=== PATIENT | male | born 1960 | race African-American/Black ===

== ENCOUNTER 2016-07-21 06:21 | Inpatient (IN) | payer OTHER ==
--- NOTE | ~2016-07-21 | DS ---
Unit #: [id number] #: [id number] Patient: RICARDO MAHONEY [id number] [facility] [place] [place] [address] [id number] MR#: [id number] NAME: RICARDO MAHONEY ROOM: [facility] Age: 55 Sex: M Admission Date: 07/21/2016 : 1960 Discharge Date: Attending Physician: Romaine Bajwa M.D. DISCHARGE SUMMARY IDENTIFYING DATA Mr. Mahoney is a 55-year-old male, who is a resident of [place], [place], and was transferred to us from [facility]. DISCHARGE DIAGNOSES Psychiatric: Chronic paranoid schizophrenia; cocaine abuse, moderate. Medical: Diabetes mellitus, hepatitis C. Stressors: Moderate psychosocial stressors. HISTORY OF PRESENT ILLNESS Please see initial psychiatric evaluation for details. PAST PSYCHIATRIC HISTORY Please see initial psychiatric evaluation for details. PAST MEDICAL HISTORY Please see initial psychiatric evaluation for details. HOSPITAL COURSE The patient was admitted to the adult psychiatric unit at [facility] and was oriented to the hospital environment. Routine p.r.n. medications were initiated, and he was started back on his home medications including his Zoloft and Geodon and was closely monitored. He was anxious, withdrawn, and rather seclusive to himself, though he was taking the medications regularly and was tolerating them fairly well and was able to show a decent and therapeutic response with improvement in depression and psychosis and no agitation or aggression was noticed. He was not seen to be danger to self or anyone else, and therefore, it was decided that he will be discharged home and will continue treatment on an outpatient basis. DISCHARGE MEDICATIONS Zoloft 100 mg a day for depression, Geodon 60 mg b.i.d. for psychosis. DISCHARGE CONDITION Stable. PROGNOSIS Fair. Dictated by... Unit #: [id number] #: [id number] Patient: RICARDO MAHONEY Louise Gore/kalyani TD: 07/25/2016 07:13 JOB #: [id number] DISCHARGE SUMMARY Page 1 of 1 X Romaine Bajwa MD X DISCHARGE SUMMARY
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
--- NOTE | ~2016-07-21 | DS ---
Unit #: [id number] #: [id number] Patient: RICARDO MAHONEY [id number] [facility] [place] [address] [id number] I MR#: [id number] NAME: RICARDO MAHONEY ROOM: [facility] Age: 55 Sex: M Admission Date: 07/21/2016 : 1960 Discharge Date: 07/25/2016 Attending Physician: Romaine Bajwa M.D. Primary Care Physician: Primary Care Physician No DISCHARGE SUMMARY IDENTIFYING DATA Mr. Mahoney is a 55-year-old single male, who was recently discharged from care and was self-referred back to the hospital. DISCHARGE DIAGNOSES Psychiatric: Major depressive disorder, recurrent, moderate, without psychotic features; alcohol dependence, moderate. Medical: Hepatitis C, hypertension, diabetes mellitus. Stressors: Moderate psychosocial stressors. HISTORY OF PRESENT ILLNESS Please see initial psychiatric evaluation for details. PAST PSYCHIATRIC HISTORY Please see initial psychiatric evaluation for details. PAST MEDICAL HISTORY Please see initial psychiatric evaluation for details. HOSPITAL COURSE The patient was admitted to the adult chemical dependency unit at [facility] and was oriented to the hospital environment. Routine p.r.n. medications were initiated, and he was started back on his home medications and was closely monitored. He was taking the medications regularly and was tolerating them fairly well and was able to show a decent and therapeutic response with improvement in depression and anxiety and was willing to continue treatment on an outpatient basis and as such, it was decided that he will be discharged home and will continue treatment on an outpatient basis. DISCHARGE MEDICATIONS Zoloft 100 mg a day for depression, Geodon 60 mg b.i.d. for mood disorder, Glucophage 500 mg b.i.d. for diabetes, Levemir 15 units at bedtime for diabetes. DISCHARGE CONDITION Stable. PROGNOSIS Fair. Unit #: [id number] #: [id number] Patient: RICARDO MAHONEY Dictated by... Romaine Bajwa M.D. IAA/modl TD: 08/01/2016 06:58 JOB #: [id number] DISCHARGE SUMMARY Page 1 of 1 X Romaine Bajwa MD X DISCHARGE SUMMARY
--- NOTE | ~2016-07-21 | HP ---
Unit #: [id number] #: [id number] Patient: NADIR MAHONEY [id number] [place] [address] [id number] I MR#: [id number] NAME: NADIR MAHONEY ROOM: P254 Age: 55 Sex: M Admission Date: 07/21/2016 : 1960 Attending Physician: Romaine Bajwa M.D. Admitting Physician: Romaine Bajwa M.D. Primary Care Physician: No Primary Care Physician HISTORY AND PHYSICAL HISTORY OF PRESENT ILLNESS Nadir is a 55-year-old admitted to [address] [place] [address] with depression and verbalizing wanting to hurt himself. PAST MEDICAL HISTORY 1. History of illicit substance abuse. 2. Diabetes mellitus. 3. Hepatitis C. 4. High blood pressure. PAST SURGICAL HISTORY Nothing reported. ALLERGIES Hydrocodone and Tylenol. SOCIAL HISTORY He does not smoke. Drinks alcohol socially. Admits to a history of illicit drug use to include crack cocaine and amphetamines. FAMILY HISTORY Medically noncontributory. REVIEW OF SYSTEMS CONSTITUTIONAL: No fever or chills. HEENT: Denies any sore throat, ear pain or runny nose. CARDIOVASCULAR: Denies chest pain, irregular heart rhythm or palpitations. CHEST: Denies shortness of breath or cough. No hemoptysis. GASTROINTESTINAL: Denies nausea, vomiting, diarrhea or chronic constipation. ENDOCRINE: Denies history of increased thirst or urination. No recent significant weight loss or gain. GENITOURINARY: Denies dysuria, frequency, or hematuria. SKIN: Denies any rashes. HEMATOLOGIC: Denies history of increased bleeding or bruising. MUSCULOSKELETAL: Denies any hot, swollen joints. No generalized muscle pain. NEUROLOGIC: Denies problems with vision or speech. No frequent, severe headaches. No numbness, tingling or weakness in any extremities. Denies loss of bladder or bowel control. CURRENT MEDICATIONS 1. Zoloft 100 mg every day. Unit #: [id number] #: [id number] Patient: NADIR MAHONEY 2. Zestril 5 mg every day. 3. Glucotrol 5 mg q.a.m. 4. Geodon 60 mg b.i.d. 5. Glucophage 500 mg b.i.d. 6. NovoLog per sliding scale. 7. Motrin 400 mg q.6 hours p.r.n. 8. Milk of magnesia p.r.n. 9. Maalox p.r.n. PHYSICAL EXAMINATION GENERAL: Alert, thin, and in no apparent distress. VITAL SIGNS: Blood pressure 160/88, heart rate 77, respirations 16, temperature 98.6, weight 130 pounds, and height 6 feet, 0 inches. SKIN: Warm and dry without rash or lesion. HEENT: Normocephalic. TMs not viewed. Oral and nasal passages clear. Conjunctivae clear. PERRLA. EOMs intact. NECK: Supple without lymphadenopathy or thyromegaly. HEART: Regular rate and rhythm without murmur. LUNGS: Clear. ABDOMEN: Soft, nontender. : Not done. EXTREMITIES: No evidence of cyanosis, clubbing or edema. Moves all without focal deficit. NEUROLOGICAL: Grossly within normal limits. Cranial Nerves: II: Visual jacobsen are intact. III, IV AND : Extraocular movements are intact. Pupils are equal, round and reactive to light. V: Facial sensation is grossly normal. VII: Facial movements and expression are normal. VIII: Auditory acuity grossly intact. IX, X: Uvula is midline. Phonation is normal. XI: Patient shrugs shoulders and turns head normally. XII: Tongue protrudes in the midline. Sensory and Motor Function: Sensory and motor sensation is grossly normal. Motor: moves all extremities well. Coordination: Gait is normal. Deep Tendon Reflexes: Intact. IMPRESSION Psychiatric admission. RECOMMENDATIONS PSYCHIATRIC: Per psychiatrist. MEDICAL: I see no contraindication to participating in facility's activities. MEDICAL PROGNOSIS Good. MEDICAL CONDITION Stable. Dictated by... Rosalba Ma P.A.-C. for Louise Nuñez Unit #: [id number] #: [id number] Patient: NADIR MAHONEY TD: 07/22/2016 06:28 JOB #: [id number] HISTORY AND PHYSICAL Page 1 of 1 X Rosalba Ma HISTORY AND PHYSICAL
--- NOTE | ~2016-07-21 | PN ---
Unit #: [id number] #: [id number] Patient: RICARDO MAHONEY [id number] [facility] [address] [place] [address] [id number] Angelo MR#: [id number] NAME: RICARDO MAHONEY ROOM: P254 Age: 55 Sex: M Admission Date: 07/21/2016 : 1960 Attending Physician: Romaine Bajwa M.D. Admitting Physician: Romaine Bajwa M.D. Primary Care Physician: Primary Care Physician Marilin DENG PROGRESS NOTES DATE OF SERVICE: 07/24/2016 SUBJECTIVE Mr. Mahoney is a 55-year-old male who was seen today and chart was reviewed, and case was discussed with the staff. He has been very seclusive to himself and stays in his bed and does not open his eyes and talk to me, even though I know that he is and he would not interact and answer any of my questions and the staff says that he stays rather seclusive to himself. MENTAL STATUS EXAMINATION Middle-aged male who was casually dressed with fair personal hygiene, appears to be in no acute distress or discomfort and was awake and alert with impaired attention and concentration. The rest of the mental status examination could not be completed due to the patient refusing to cooperate very much in treatment and as such, we will continue to monitor the patient's intervention and we will make further adjustments as needed. Dictated by... Louise Gore/kalyani TD: 07/25/2016 13:04 JOB #: [id number] AAKASH PROGRESS NOTES Page 1 of 1 X Romaine Bajwa MD X PROGRESS NOTE
--- NOTE | ~2016-07-21 | PN ---
Unit #: [id number] #: [id number] Patient: RICARDO MAHONEY [id number] [facility] [address] [place] [address] [id number] MR#: [id number] NAME: RICARDO MAHONEY ROOM: P254 Age: 55 Sex: M Admission Date: 07/21/2016 : 1960 Attending Physician: Romaine Bajwa M.D. Admitting Physician: Romaine Bajwa M.D. Primary Care Physician: Primary Care Physician Marilin COFFEY NOTES DATE 07/22/2016 DISCUSSION Mr. Mahoney is a 55-year-old, white male with mood disorder who was seen today and chart was reviewed and case was discussed with the staff. He has been anxious, withdrawn and rather seclusive to himself. Meanwhile, he has been cooperative with treatment recommendations. He has been taking medications and tolerating them fairly well with no reported side effects. MENTAL STATUS EXAM Young white male who was casually dressed with fair personal hygiene, appears to be in no acute distress or discomfort. He was awake and alert on interaction with intact orientation. His mood was anxious with congruent affect. He denies any suicidal or homicidal ideation. His insight and judgement remains slightly impaired. TREATMENT PLAN 1. We will continue him on his current medications and treatment protocol. We will monitor his response to the medications and make further adjustments as needed. 2. We will continue to follow up. Dictated by... Louise Gore/ton TD: 07/26/2016 02:15 JOB #: [id number] Unit #: [id number] #: [id number] Patient: RICARDO MAHONEY PROGRESS NOTES Page 1 of 1 X Romaine Bajwa MD X PROGRESS NOTE
--- NOTE | ~2016-07-21 | PN ---
Unit #: [id number] #: [id number] Patient: RICARDO MAHONEY [id number] [facility] [address] [place] [address] [id number] I MR#: [id number] NAME: RICARDO MAHONEY ROOM: P254 Age: 55 Sex: M Admission Date: 07/21/2016 : 1960 Attending Physician: Romaine Bajwa M.D. Admitting Physician: Romaine Bajwa M.D. Primary Care Physician: Marilin Primary Care Physician ISH PROGRESS NOTES DATE OF SERVICE July 23, 2016 DISCUSSION Mr. Mahoney is a 55-year-old, -[place] male with mood disorder. He was seen today and chart was reviewed. His case was discussed with the staff. He remains anxious, withdrawn, depressed, and rather seclusive to himself. Meanwhile, he has been taking medications and tolerating them fairly well with no reported side effects. MENTAL STATUS EXAMINATION Middle age, -[place] male who was casually dressed with fair personal hygiene and appears to be in no acute distress or discomfort. He was awake and alert on interaction with intact orientation. His mood was anxious and depressed with a congruent affect. His speech was fluent and restricted in content. He reports having some suicidal ideation, but denies any homicidal ideation and also denies any auditory or visual hallucinations. His insight and judgement remain slightly impaired. TREATMENT PLAN 1. We will continue his current treatment protocol. Will monitor his response to the medications and make further adjustments as needed. 2. We will continue to follow up. Dictated by... Louise Gore/basia TD: 07/26/2016 11:22 JOB #: [id number] Unit #: [id number] #: [id number] Patient: RICARDO MAHONEY PROGRESS NOTES Page 1 of 1 X Romaine Bajwa MD PROGRESS NOTE
--- NOTE | ~2016-07-21 | A ---
[facility] Nutrition Therapy DATE: 07/22/16 Patient: RICARDO MAHONEY Physician: KAROL Address: [address] Room/Bed: [address], Zip: [place] [id number] Admit Date: 07/21/16 Date of : [birth year] Height: 6 3 Weight: 129 58.16692 NUTRITIONAL ASSESSMENT: REASON: LOW BMI (17.6), NUTRITIONAL RISK POINT- UNINTENTIONAL WEIGHT LOSS PATIENT ADMITTED FOR DEPRESSION AND SI PMH: HX ILLICIT SUBSTANCE ABUSE, DM, HEP C, HTN Anthropometrics: HT: 6'0", WT: 130#, BMI: 17.6, %IBW: 73 Labs: NOT AVAILABLE Meds: ZOLOFT, ZESTRIL, GLUCOTROL, GEODON, GLUCOPHAGE Assessment: CHART REVIEWED, EVENTS NOTED. PATIENT IS A 55 Y/O MALE ADMITTED FOR SI AND DEPRESSION. PATIENT IS CURRENTLY UNEMPLOYED, HOMELESS, AND HAS WEEKLY ETOH, COCAINE, AND METH USE. PATIENT APPEARS TO BE A TALL, THIN MALE. HE HAS A HX OF INPATIENT HOSPITALIZATIONS AT THIS FACILITY AND HAS BEEN NON-COMPLIANT WITH MEDICATIONS PRIOR TO ADMIT. PATIENT HAS ALSO BEEN REFUSING MEDICATIONS AT TIMES SINCE ADMIT. PER NEEDS ASSESSMENT, PATIENT STATED A GOOD APPETITE WITH NO KNOWN WEIGHT LOSS, AND HAS NOT BEEN SLEEPING. NURSING REPORTS PATIENT HAS BEEN UP AND EATING MEALS, HOWEVER STAFF WAS UNABLE TO RE-CHECK PATIENT'S WEIGHT D/T PATIENT REFUSAL. NURSING HAS ALSO REPORTED THAT PATIENT'S GLUCOSE LEVELS WERE >600 WHEN ADMITTED TO FACILITY BUT MOST RECENT CHECK WAS 179, WHICH IS A LARGE IMPROVEMENT. PATIENT IS CURRENTLY ON A CC DIET. THERE ARE NO SKIN OR GI ISSUES NOTED ATT. Dx: INADEQUATE NUTRIENT INTAKE R/T CURRENT CONDITION, DRUG USE AEB LOW BMI, NUTRITIONAL RISK POINT Intervention: 1. CC DIET, 2. MEDS PER MD, 3. PSYCH Monitoring, Evaluation and Goals: 1. ADEQUATE PO INTAKES >50% OF MEALS 2. PREVENT, CORRECT MICRO/MACRO NUTRIENT DEFICIENCIES 3. PROMOTE A STEADY WEIGHT GAIN TOWARDS A HEALTHY BMI OF 19-25 MONITOR: WEIGHTS, LABS, PO/FLUID INTAKES Recommendations: 1. CONTINUE CC DIET TOLERATED. OFFER SNACKS BETWEEN MEALS. MAY INCERASE ENTREES TO LARGE PORTIONS ONCE GLUCOSE LEVELS STABILIZE [facility] Therapy DATE: 07/22/16 Patient: RICARDO MAHONEY Physician: KAROL Address: [address] Room/Bed: [address], Zip: [place] [address] Admit Date: 07/21/16 Date of : [birth year] Height: 6 3 Weight: 129 58.02369 2. ENCOURAGE ADEQUATE PO AND FLUID INTAKES 3. OBTAIN WEIGHTS ROUTINELY (EVERY 2-3 DAYS) TO ENSURE PATIENT RECEIVES ADEQUATE ORAL INTAKE 4. CONTINUE TO CHECK GLUCOSE LEVELS ROUTINELY 5. IF PO INTAKES FALL BELOW 50% OF MEALS PLEASE ORDER GLUCERNA BID TO PROMOTE ADEQUATE KCAL AND PROTEIN INTAKES, AND A STEADY WEIGHT GAIN TOWARDS A HEALTHY BMI RD TO F/U PER PROTOCOL AND PRN R/T PATIENT MILDLY COMPROMISED Respectfully, TALIA KINSEY, RD, LD [facility] cc: client file
--- NOTE | ~2016-07-21 | CO ---
Unit #: [id number] #: [id number] Patient: RICARDO MAHONEY [id number] [place] [address] [id number] I MR#: [id number] NAME: RICARDO MAHONEY ROOM: [facility] Age: 55 Sex: M Admission Date: 07/21/2016 : 1960 Attending Physician: Romaine Bajwa M.D. CONSULTATION REPORT TEJINDER Del Rosario is a 55-year-old with history of diabetes mellitus. Please see H and P dated 07/21/2016 for listing of his diabetic medications. We will be monitoring Accu-Cheks a.c. and h.s. and he is provided a constant carb diet. Dictated by... Rosalba Ma P.A.-C. for Louise Nuñez/kalyani TD: 07/25/2016 17:24 JOB #: [id number] CONSULTATION REPORT Page 1 of 1 X Rosalba Ma CONSULTATION REPORT
[2016-07-23 13:13] LABS: THYROID STIMULATING HORMONE 0.42 uIU/ml (0.34-5.60)
[2016-07-23 13:20] LABS: FREE THYROXIN (T4) 0.85 ng/dL (0.58-1.64)
== END 2016-07-25 10:05 | disposition home or self-care (01) | DRG 885 ==
LOC: P2L 06:21
PROVIDERS: Psychiatry & Neurology Psychiatry
DX: F20.0 Paranoid schizophrenia (principal); E11.9 Type 2 diabetes mellitus without complications; R45.851 Suicidal ideations; F14.10 Cocaine abuse, uncomplicated; B19.20 Unspecified viral hepatitis C without hepatic coma; F41.9 Anxiety disorder, unspecified
CPT/HCPCS: 82947; 84439; 84443

== ENCOUNTER 2016-07-28 19:26 | Inpatient (IN) | payer OTHER ==
--- NOTE | ~2016-07-28 | PN ---
Unit #: [id number] #: [id number] Patient: RICARDO MAHONEY [id number] [facility] [address] [place] [address] [id number] I MR#: [id number] NAME: RICARDO MAHONEY ROOM: [facility] Age: 55 Sex: M Admission Date: 07/28/2016 : 1960 Attending Physician: Romaine Bajwa M.D. Admitting Physician: Romaine Bajwa M.D. Primary Care Physician: Primary Care Physician Marilin COFFEY NOTES DATE 07/31/2016 DISCUSSION Mr. Mahoney is a 55-year-old, male who was seen today and chart was reviewed and case was discussed with the staff. He remains anxious, withdrawn, depressed and rather seclusive to himself. Meanwhile, he has been cooperative with treatment recommendations. He has been taking the medication and tolerating them fairly well with no reported side effects. MENTAL STATUS EXAM Middle-aged male who was casually dressed with fair personal hygiene, appears to be in no acute distress or discomfort. He was awake and alert with good attention and concentration. His mood was anxious with congruent affect. He denies any suicidal or homicidal ideation. His insight and judgement remains slightly impaired. TREATMENT PLAN 1. We will continue him on his current treatment protocol. We will monitor his response to the medication and make further adjustments as needed. 2. We will continue to follow up. Dictated by... Louise Gore/ton TD: 08/01/2016 21:18 JOB #: [id number] Unit #: [id number] #: [id number] Patient: RICARDO MAHONEY ISH PROGRESS NOTES Page 1 of 1 X Romaine Bajwa MD PROGRESS NOTE
--- NOTE | ~2016-07-28 | HP ---
Unit #: [id number] #: [id number] Patient: NADIR MAHONEY [id number] [facility] [address] [place] [address] [id number] I MR#: [id number] NAME: NADIR MAHONEY ROOM: [facility] Age: 55 Sex: M Admission Date: 07/28/2016 : 1960 Attending Physician: Romaine Bajwa M.D. Admitting Physician: Romaine Bajwa M.D. Primary Care Physician: Primary Care Physician No HISTORY AND PHYSICAL Nadir is a 55 year old admitted to [facility] with depression and verbalizing wanting to hurt himself. He was just discharged from this facility after treatment for the same. Patient was seen and H and P dated 07/21/16 was reviewed. This is current. No changes. Please see H and P dated 07/21/16. Dictated by... Rosalba Ma P.A.-C. for Louise Nuñez/ykaov TD: 07/29/2016 18:32 JOB #: [id number] HISTORY AND PHYSICAL Page 1 of 1 X Rosalba Ma HISTORY AND PHYSICAL
--- NOTE | ~2016-07-28 | CO ---
Unit #: [id number] #: [id number] Patient: RICARDO MAHONEY [id number] [place] [address] [id number] MR#: [id number] NAME: RICARDO MAHONEY ROOM: [facility] Age: 55 Sex: M Admission Date: 07/28/2016 : 1960 Attending Physician: Romaine Bajwa M.D. Primary Care Physician: Primary Care Physician No Consultation Date: 07/28/2016 CONSULTATION REPORT TEJINDER Schmitz is a 55-year-old with a history of diabetes. We have been asked to manage his diabetes. HOME MEDICATIONS Include Glucophage 500 mg b.i.d. and Glucotrol 5 mg q.a.m. PLAN We will monitor Accu-Cheks a.c. and h.s. and add a NovoLog sliding scale. He will be provided a constant carb diet. The patient knows to follow up with his PCP. Dictated by... Rosalba Ma P.A.-C. for Louise Nuñez/kalyani TD: 08/11/2016 02:14 JOB #: [id number] CONSULTATION REPORT Page 1 of 1 X Rosalba Ma CONSULTATION REPORT
--- NOTE | ~2016-07-28 | PN ---
Unit #: [id number] #: [id number] Patient: RICARDO MAHONEY [id number] [facility] [address] [place] [address] [id number] I MR#: [id number] NAME: RICARDO MAHONEY [facility] Age: 55 Sex: M Admission Date: 07/28/2016 : 1960 Attending Physician: Romaine Bajwa M.D. Admitting Physician: Romaine Bajwa M.D. Primary Care Physician: Primary Care Physician Marilin DENG PROGRESS NOTES DATE 07/30/2016 DISCUSSION Mr. Mahoney is a 55-year-old, male who was seen today and chart was reviewed and case was discussed with the staff. He has been anxious, restless, withdrawn and rather seclusive to himself. Meanwhile, he has been cooperative with treatment recommendations. He has been taking medications and tolerating them fairly well with no reported side effects. MENTAL STATUS EXAM Middle-aged male who was casually dressed with fair personal hygiene, appears to be in no acute distress or discomfort. He was awake and alert on interaction with intact orientation. His mood was anxious with congruent affect. His speech was slow and goal directed. He denies any suicidal or homicidal ideation. His insight and judgement remains slightly impaired. TREATMENT PLAN 1. We will continue him on his current medications and treatment protocol. We will monitor his response and make further adjustments as needed. 2. We will continue to follow up. Dictated by... Louise Gore/ton TD: 07/31/2016 23:53 JOB #: [id number] Unit #: [id number] #: [id number] Patient: RICARDO MAHONEY PROGRESS NOTES Page 1 of 1 X Romaine Bajwa MD PROGRESS NOTE
--- NOTE | ~2016-07-28 | A ---
[facility] Nutrition Therapy DATE: 07/29/16 Patient: RICARDO MAHONEY Physician: KAROL Address: [address] Room/Bed: [address], Zip: [place] [address] Admit Date: 07/28/16 Date of : [birth year] Height: 6 0 Weight: [phone] NUTRITIONAL ASSESSMENT: REASON: LOW BMI (16.5) PATIENT ADMITTED FOR SI AND SUBSTANCE ABUSE PMH: HEP C, DM, HTN, POLYSUBSTANCE ABUSE Anthropometrics: HT: 6'0", WT: 122#, BMI: 16.5 Labs: NO LABS AVAILABLE Meds: DESYREL, GEODON, LEVEMIR, DETOX PROTOCOL, ATIVAN, ZOLOFT Assessment: CHART REVIEWED, EVENTS NOTED. PATIENT IS A 55 Y/O MALE ADMITTED FOR SI AND SUBSTANCE ABUSE. PATIENT IS CURRENTLY UNEMPLOYED, HOMELESS, AND HAS BEEN DRINKING A FIFTH OF ETOH AND USING 1GM OF COCAINE DAILY SINCE DISCHARGE FROM THIS FACILITY ON 07/25/16. UPON ADMIT PATIENT WAS DISORIENTED TO PLACE, TIME, AND SITUATION; HOWEVER PER NEEDS ASSESSMENT, PATIENT STATED A GOOD APPETITE WITH NO RECENT WEIGHT LOSS. WEIGHT HX PER Favor SHOWS A 28# WEIGHT LOSS OVER LAST 3 MONTHS. THE VALIDITY OF PATIENT'S WEIGHT HX IS UNKNOWN. LAST ADMIT, PATIENT REFUSED TO BE WEIGHED BY NURSING STAFF. WILL REQUEST A RE-WEIGH FROM NURSING IF PATIENT WILLING. PATIENT HAS A HX OF INPATIENT HOSPITALIZATIONS AT THIS FACILITY, WITH HIS LAST D/C ON 07/25/16. PATIENT HAS A HX OF MEDICATION NON-COMPLIANCE BOTH INSIDE AND OUTSIDE OF FACILITY. UPON ADMIT PATIENT'S BLOOD GLUCOSE LEVELS WERE OVER 500. HE IS NON-COMPLIANT WITH INSULIN. WILL CONTINUE TO MONITOR PATIENT'S GLUCOSE LEVELS, WEIGHT, AND PO INTAKES. THERE ARE NO SKIN OR GI ISSUES NOTED ATT. PATIENT IS ON A CC DIET WITH NO CAFFEINE. Dx: INADEQUATE NUTRIENT INTAKE R/T CURRENT CONDITION, DRUG USE AEB LOW BMI, INSULIN NON-COMPLIANCE, PROBABLE WEIGHT LOSS Intervention: 1. CC DIET, 2. MEDS PER MD, 3. DETOX, 4. PSYCH Monitoring, Evaluation and Goals: 1. ADEQUATE PO INTAKES >50% OF MEALS 2. PREVENT, CORRECT MICRO/MACRO NUTRIENT DEFICIENCIES 3. WEIGHT; PREVENT FURTHER WEIGHT LOSS 4. GLUCOSE AND OTHER LAB VALUES WNL MONITOR: WEIGHTS, LABS, PO/FLUID INTAKES, GLUCOSE LEVELS [facility] Nutrition Therapy DATE: 07/29/16 Patient: RICARDO MAHONEY Physician: KAROL Address: [address] Room/Bed: P183-1 [facility], Zip: [place] [address] Admit Date: 07/28/16 Date of : [birth year] Height: 6 0 Weight: [phone] Recommendations: 1. CONTINUE CC DIET WITH NO CAFFEINE TOLERATED. OFFER SNACKS BETWEEN MEALS. WILL CONSIDER LARGE PORTION ENTREES FOLLOWING GLUCOSE STABILIZATION 2. ENCOURAGE ADEQUATE PO AND FLUID INTAKES 3. ATTEMPT TO RE-WEIGH PATIENT, IF WILLING. CONTINUE TO ROUTINELY WEIGHT PATIENT EVER 3-4 DAYS 4. IF PO INTAKES ARE BELOW 75% CONSUMPTION OF MEALS, PLEASE ORDER GLUCERNA BID TO PROMOTE ADEQUATE KCAL AND PROTEIN INTAKES RD TO F/U PER PROTOCOL AND PRN R/T PATIENT MILD/MODERATELY COMPROMISED Respectfully, TALIA KINSEY, RD, LD [employer] [facility] cc: client file
--- NOTE | ~2016-07-28 | PA ---
Unit #: [id number] #: [id number] Patient: RICARDO MAHONEY [id number] [facility] [address] [place] [address] [id number] I MR#: [id number] NAME: RICARDO MAHONEY ROOM: [facility] Age: 55 Sex: M Admission Date: 07/28/2016 : 1960 Date of Assessment: Attending Physician: Romaine Bajwa M.D. Admitting Physician: Romaine Bajwa M.D. PSYCHIATRIC ASSESSMENT IDENTIFYING DATA Mr. Mahoney is a 55-year-old, single, , male, who is known to me from previous encounter, was recently discharged from my care and is a resident of [place], [place] and is transferred back to from [place], [place]. CHIEF COMPLAINT "I've been having thoughts for suicide with a plan to overdose on my insulin or crack cocaine." HISTORY OF PRESENT ILLNESS Fausto is a 55-year-old male with a history of substance abuse and dependence, who was transferred to us from [facility] in [place], [place] where he presented to the emergency room with suicidal thoughts and plan to overdose on insulin or crack cocaine, and apparently was disoriented at the time of initial assessment and had a difficult time staying alert to participate in the assessment and inclination of ride hereafter. Reports the patient's blood sugar level was in the 500s and before transfer, it was in the normal range, and was medically stabilized and cleared and the patient was exhibiting some significant depression, anger, agitation, irritability, impulsivity, feelings of hopelessness and helplessness, suicidal ideations, intent, or plan and was seen to be danger to self and therefore recommendation for inpatient level of care with psychiatric unit was made and the patient was transferred to us. SUBSTANCE ABUSE HISTORY The patient has a history of alcohol, cocaine, and amphetamine abuse, and reports that currently he has been drinking a fifth of vodka a day since he has been discharged from the hospital and also has been using more than a gram of cocaine a day. PAST PSYCHIATRIC HISTORY The patient has had a history of inpatient psychiatric hospitalization at [facility] and at [facility] as well as at [facility], and has been diagnosed and treated for bipolar disorder. Review of the medical records indicate that he is supposed to be on a combination of Geodon and Zoloft, but it is not clear if he has been compliant with the medication after being discharged from the hospital. PAST MEDICAL HISTORY Significant for diabetes mellitus, hepatitis C. Unit #: [id number] #: [id number] Patient: RICARDO MAHONEY ALLERGIES Acetaminophen and hydrocodone. PERSONAL AND SOCIAL HISTORY A 55-year-old male, who reports that he is single, unemployed, and essentially homeless and has poor social support system. MENTAL STATUS EXAMINATION Middle-aged male, who was casually dressed with a fair personal hygiene, appears to be in no acute distress or discomfort. He was awake and alert on interaction with intact orientation to time, place, and person. His mood was anxious and depressed with a congruent affect. His speech was slow and restricted in content. His thought processes were disorganized with some looseness of associations and suicidal ideations. His insight and judgment remain significantly impaired. DIAGNOSTIC IMPRESSION Psychiatric: Bipolar disorder, most recent episode depressed, recurrent, moderate, without psychotic features; alcohol dependence, moderate and acute withdrawals; cocaine dependence, moderate. Medical: Hepatitis C, diabetes mellitus. Stressors: Moderate psychosocial stressors. TREATMENT PLAN 1. The patient has presented with a history of substance abuse and mood disorder, and has been decompensating and will need inpatient hospitalization for detoxification, safety, and stabilization. We will start him on detox protocol. We will closely monitor for any worsening withdrawal symptoms. 2. Supportive therapy was provided to the patient. 3. Safe, structured, and nourishing environment will be provided. ESTIMATED LENGTH OF STAY 5 to 7 days. ABILITY TO HELP SELF Limited. WILLINGNESS TO HELP SELF The patient appears to be willing to help self. STRENGTHS 1. Communicative. 2. Cooperative. PROBLEMS 1. Chronic dysphoric symptoms. 2. Chronic chemical dependency. 3. Poor social support system. DISCHARGE CRITERIA This will be contingent upon patient's ability to go through detox without having any significant withdrawal symptoms as well as ability to stay safe to himself, particularly after discharge from the hospital. Dictated by... Unit #: [id number] #: [id number] Patient: RICARDO MAHONEY Louise Gore/kalyani TD: 07/29/2016 06:35 JOB #: [id number] PSYCHIATRIC ASSESSMENT Page 1 of 1 X Romaine Bajwa MD PSYCHIATRIC ASSESSMENT
[2016-07-29 13:27] LABS: AMPHETAMINE POS (NEG); BARBITURATES NEG (NEG); BENZODIAZEPINES NEG (NEG); COCAINE POS (NEG); MARIJUANA POS (NEG); OPIATES NEG (NEG); TRICYCLIC ANTIDEPRESSANTS NEG (NEG); U METHADONE NEG (NEG)
== END 2016-08-01 12:00 | disposition home or self-care (01) | DRG 885 ==
LOC: P1E 19:26
PROVIDERS: Psychiatry & Neurology Psychiatry
PROC: HZ2ZZZZ Detoxification Services for Substance Abuse Treatment (ICD-10-PCS; principal; 2016-07-28)
DX: F31.32 Bipolar disorder, current episode depressed, moderate (principal); E11.8 Type 2 diabetes mellitus with unspecified complications; F10.239 Alcohol dependence with withdrawal, unspecified; F14.20 Cocaine dependence, uncomplicated; B19.20 Unspecified viral hepatitis C without hepatic coma; I10 Essential (primary) hypertension
CPT/HCPCS: 80307; 82947

== ENCOUNTER 2016-09-01 05:00 | Inpatient (IN) | payer OTHER ==
--- NOTE | ~2016-09-01 | PN ---
Unit #: [id number] #: [id number] Patient: RICARDO MAHONEY [id number] [facility] [address] [place] [address] [id number] I MR#: [id number] NAME: RICARDO MAHONEY ROOM: [facility] Age: 55 Sex: M Admission Date: 09/01/2016 : 1960 Attending Physician: Romaine Bajwa M.D. Admitting Physician: Romaine Bajwa M.D. Primary Care Physician: Paul Doctor Not In System [facility] PROGRESS NOTES DATE 09/02/2016 DISCUSSION Mr. Mahoney is a 55-year-old male with substance abuse and mood disorder who was seen today and chart was reviewed and case was discussed with the staff. He was seen to be anxious, withdrawn, depressed and rather seclusive to himself. Meanwhile, he has been cooperative with treatment recommendations and has been taking medications and tolerating them fairly well with no reported side effects. MENTAL STATUS EXAMINATION Middle-aged male who was casually dressed with fair personal hygiene and appears to be in no acute distress or discomfort. He was awake and alert on interaction with intact orientation. His mood was anxious with congruent affect. He reports having suicidal ideation but denies any homicidal ideations and also denies any auditory or visual hallucinations. His insight and judgement remains slightly impaired. TREATMENT PLAN 1. Will continue on his current medications and treatment protocol and will monitor his response to the medications and make further adjustments as needed. 2. Will continue to follow up. Dictated by... Louise Gore/yakov TD: 09/03/2016 22:16 JOB #: [id number] Unit #: [id number] #: [id number] Patient: RICARDO MAHONEY [facility] PROGRESS NOTES Page 1 of 1 X Romaine Bajwa MD PROGRESS NOTE
--- NOTE | ~2016-09-01 | DS ---
Unit #: [id number] #: [id number] Patient: [facility] [id number] [facility] [place] [address] [id number] I MR#: [id number] NAME: RICARDO MAHONEY ROOM: [facility] Age: 55 Sex: M Admission Date: 09/01/2016 : 1960 Discharge Date: 09/05/2016 Attending Physician: Romaine Bajwa M.D. Primary Care Physician: Generic Doctor Not In System DISCHARGE SUMMARY IDENTIFYING DATA Mr. Mahoney is a 55-year-old male, who is a resident of [place], [place], and is known to us from previous encounter, was transferred to us from [facility] in [place], [place]. DISCHARGE DIAGNOSES Psychiatric: Major depressive disorder, recurrent, moderate, without psychotic features; cocaine dependence, moderate. Medical: Hypertension and diabetes mellitus. Stressors: Moderate psychosocial stressors. HISTORY OF PRESENT ILLNESS Please see initial psychiatric evaluation for details. PAST PSYCHIATRIC HISTORY Please see initial psychiatric evaluation for details. PAST MEDICAL HISTORY Please see initial psychiatric evaluation for details. HOSPITAL COURSE The patient was admitted to the adult psychiatric and chemical dependency unit at [facility] and was oriented to the hospital environment. Routine p.r.n. medications were initiated and started back on his home medications and medications were adjusted and he was closely monitored. He was taking the medications regularly and was tolerating them fairly well and was able to show a decent and therapeutic response and as such, it was decided he will be discharged home and will continue treatment on an outpatient basis. DISCHARGE MEDICATIONS Levemir 10 units at bedtime for diabetes. DISCHARGE CONDITION Stable. PROGNOSIS Fair. Dictated by... Romaine Bajwa M.D. Unit #: [id number] #: [id number] Patient: RICARDO MAHONEY IAA/modl TD: 09/06/2016 01:26 JOB #: [id number] DISCHARGE SUMMARY Page 1 of 1 X Romaine Bajwa MD X DISCHARGE SUMMARY
--- NOTE | ~2016-09-01 | HP ---
Unit #: [id number] #: [id number] Patient: NADIR MAHONEY [id number] [facility] [address] [place] [address] [id number] I MR#: [id number] NAME: NADIR MAHONEY ROOM: [facility] Age: 55 Sex: M Admission Date: 09/01/2016 : 1960 Attending Physician: Romaine Bajwa M.D. Admitting Physician: Romaine Bajwa M.D. Primary Care Physician: Generic Doctor Not In System HISTORY AND PHYSICAL HISTORY OF PRESENT ILLNESS Nadir is a 55-year-old male admitted on 09/01/2016 to [facility] for detox from crystal meth and alcohol. PAST MEDICAL HISTORY Type II diabetes and hypertension PAST SURGICAL HISTORY A left wrist surgical repair times two and a left inguinal hernia repair. SOCIAL HISTORY Smokes 10 to 12 cigarettes daily, occasional alcohol use and daily crystal meth use. He is currently and homeless. FAMILY HISTORY Noncontributory. REVIEW OF SYSTEMS CONSTITUTIONAL: No fever or chills. HEENT: Denies any sore throat, ear pain or runny nose. CARDIOVASCULAR: Denies chest pain, irregular heart rhythm or palpitations. CHEST: Denies shortness of breath or cough. No hemoptysis. GASTROINTESTINAL: Denies nausea, vomiting, diarrhea or chronic constipation. ENDOCRINE: Denies history of increased thirst or urination. No recent significant weight loss or gain. GENITOURINARY: Denies dysuria, frequency, or hematuria. SKIN: Denies any rashes. HEMATOLOGIC: Denies history of increased bleeding or bruising. MUSCULOSKELETAL: Denies any hot, swollen joints. No generalized muscle pain. NEUROLOGIC: Denies problems with vision or speech. No frequent, severe headaches. No numbness, tingling or weakness in any extremities. Denies loss of bladder or bowel control. CURRENT MEDICATIONS None. ALLERGIES None. PHYSICAL EXAMINATION GENERAL: Alert, oriented, in no acute distress. Unit #: [id number] #: [id number] Patient: NADIR MAHONEY VITAL SIGNS: Blood pressure 144/95, heart rate 82, respirations 16. HEIGHT: 6 foot 0 inches. WEIGHT: 196 pounds. SKIN: Warm and dry without rash or lesion. HEENT: Normocephalic. TMs not viewed. Oral and nasal passages clear. Conjunctivae clear. PERRLA. EOMs intact. NECK: Supple without lymphadenopathy or thyromegaly. HEART: Regular rate and rhythm without murmur. LUNGS: Clear. ABDOMEN: Soft, nontender, without masses or hepatosplenomegaly. : Not done. EXTREMITIES: No evidence of cyanosis, clubbing or edema. Moves all without focal deficit. NEUROLOGICAL: Grossly within normal limits. Cranial Nerves: II: Visual jacobsen are intact. III, IV AND : Extraocular movements are intact. Pupils are equal, round and reactive to light. V: Facial sensation is grossly normal. VII: Facial movements and expression are normal. VIII: Auditory acuity grossly intact. IX, X: Uvula is midline. Phonation is normal. XI: Patient shrugs shoulders and turns head normally. XII: Tongue protrudes in the midline. Sensory and Motor Function: Sensory and motor sensation is grossly normal. Motor: moves all extremities well. Coordination: Gait is normal. Deep Tendon Reflexes: Intact. IMPRESSION Psychiatric admission. RECOMMENDATIONS Psychiatric, per psychiatrist. MEDICAL: I see no contraindications to participating in facility's activities. MEDICAL PROGNOSIS Good. MEDICAL CONDITION Stable. Dictated by... Jeannine Jacob/ton TD: 09/01/2016 21:55 JOB #: [id number] Unit #: [id number] #: [id number] Patient: NADIR MAHONEY HISTORY AND PHYSICAL Page 1 of 1 X RAMY BARBA APRN X HISTORY AND PHYSICAL
--- NOTE | ~2016-09-01 | PA ---
Unit #: [id number] #: [id number] Patient: RICARDO MAHONEY [id number] [facility] [address] [place] [address] [id number] I MR#: [id number] NAME: RICARDO MAHONEY ROOM: [facility] Age: 55 Sex: M Admission Date: 09/01/2016 : 1960 Date of Assessment: 09/01/2016 Attending Physician: Romaine Bajwa M.D. Admitting Physician: Romaine Bajwa M.D. Primary Care Physician: Generic Doctor Not In System PSYCHIATRIC ASSESSMENT DATE OF SERVICE 09/01/2016. IDENTIFYING DATA Mr. Mahoney is a 55-year-old, , male, who is a resident of [place], [place] and is known to us from previous encounter, and was transferred to the hospital from [facility] in [place], [place]. CHIEF COMPLAINT "I let some people shoot me off with drugs." HISTORY OF PRESENT ILLNESS Mr. Mahoney is a 55-year-old male, who presented to the emergency room at [facility] in [place], [place] and stated that he lets some people shoot him off with some drugs, "I was hoping I would , I was hoping to go with my mom." The patient easily was started and appeared to be responding to internal stimuli throughout assessment and was seen to be agitated and irritable, and reports increasing depression, feelings of hopelessness and suicidal ideation with plan to overdose if he had access to drugs and he reports that cocaine is his drug of choice, but he has been using heroin and methamphetamine "whatever I can get my hands on, so I'm drinking" and was unable to contract for safety and was seen to be a significant danger to self and as such, recommendation for inpatient level of care was made. The patient was medically cleared and transferred to us. SUBSTANCE ABUSE HISTORY The patient reports history of alcohol, cannabis, cocaine, opioids, and amphetamine abuse, but cocaine appears to be his drug of choice. PAST PSYCHIATRIC HISTORY The patient has had a history of multiple inpatient psychiatric hospital[facility] at [facility], and has been diagnosed and treated for mood disorder. Review of the medical records indicate that he is supposed to be on Zoloft, but it is not clear if he has been compliant with the medication. PAST MEDICAL HISTORY The patient's medical history is significant for hypertension, diabetes, mellitus. ALLERGIES Unit #: [id number] #: [id number] Patient: RICARDO MAHONEY No known medication allergies. PERSONAL AND SOCIAL HISTORY A 55-year-old male, who reports that he is single, unemployed, and essentially homeless and has poor social support system. MENTAL STATUS EXAMINATION Middle-aged male, who was casually dressed with fair personal hygiene, appears to be in no acute distress or discomfort. He was awake and alert on interaction with intact orientation to time, place, and person. His mood was anxious and depressed with a congruent affect. His speech was slow and restricted in content. His thought processes were disorganized with some looseness of associations and suicidal ideations. His insight and judgment remain significantly impaired. DIAGNOSTIC IMPRESSION Psychiatric: Major depressive disorder, recurrent, moderate, without psychotic features; cocaine dependence, moderate. Medical: Hypertension, diabetes mellitus. Stressors: Moderate psychosocial stressors. TREATMENT PLAN 1. The patient has presented with a history of substance abuse and mood disorder, and has been decompensating and will need inpatient hospitalization for detoxification, safety, and stabilization. We will start him back on his home medications and we will monitor his response and make further adjustments as needed. 2. Supportive therapy was provided to the patient. 3. Safe, structured, and nourishing environment will be reported. ESTIMATED LENGTH OF STAY 5 to 7 days. ABILITY TO HELP SELF Limited. WILLINGNESS TO HELP SELF The patient appears to be willing to help self. STRENGTHS 1. Communicative. 2. Cooperative. PROBLEMS 1. Chronic dysphoric symptoms. 2. Chronic chemical dependency. 3. Poor social support system. DISCHARGE CRITERIA This will be contingent upon the patient's ability to go through detox without having any significant withdrawal symptoms as well as his ability to stay safe to himself, particularly after discharge from the hospital. Dictated by... Unit #: [id number] #: [id number] Patient: RICARDO MAHONEY Louise Gore/kalyani TD: 09/02/2016 06:34 JOB #: [id number] PSYCHIATRIC ASSESSMENT Page 1 of 1 X Romaine Bajwa MD PSYCHIATRIC ASSESSMENT
--- NOTE | ~2016-09-01 | PN ---
Unit #: [id number] #: [id number] Patient: RICARDO MAHONEY [id number] [facility] [address] [place] [address] [id number] MR#: [id number] NAME: RICARDO MAHONEY ROOM: [facility] Age: 55 Sex: M Admission Date: 09/01/2016 : 1960 Attending Physician: Romaine Bajwa M.D. Admitting Physician: Romaine Bajwa M.D. Primary Care Physician: Generic Doctor Not In System [facility] PROGRESS NOTES DATE OF SERVICE: 09/03/2016 SUBJECTIVE Mr. Mahoney is a 55-year-old male with mood disorder and substance abuse, who was seen today and chart was reviewed, and case was discussed with the staff. He was seen to be anxious, withdrawn, and sad . The patient appears to be in distress or discomfort and unable to perform activities of daily living. Though he has been taking the medication, he has not completely come out of the detox. MENTAL STATUS EXAMINATION Middle-aged male who is in fair personal hygiene, appears to be in distress or discomfort. He was awake and alert on interaction with intact orientation. His mood was anxious with congruent affect. He denies any suicidal or homicidal ideations and also denies any auditory or visual hallucinations. His insight and judgment remain slightly impaired. TREATMENT PLAN 1. We will continue his current medications and treatment protocol. We will monitor his response to medications and make further adjustments as needed. 2. We will continue to follow up. Dictated by... Louise Gore/kalyani TD: 09/05/2016 06:45 JOB #: [id number] [facility] PROGRESS NOTES Page 1 of 1 X Romaine Bajwa MD X PROGRESS NOTE
--- NOTE | ~2016-09-01 | CO ---
Unit #: [id number] #: [id number] Patient: NADIR MAHONEY [id number] [place] [address] [id number] MR#: [id number] NAME: NADIR MAHONEY ROOM: [facility] Age: 55 Sex: M Admission Date: 09/01/2016 : 1960 Attending Physician: Romaine Bajwa M.D. Primary Care Physician: Generic Doctor Not In System Consultation Date: 09/01/2016 CONSULTATION REPORT HISTORY OF PRESENT ILLNESS Nadir has complaints of straining to urinate with discharge from his penis when he urinates. This has been going on for quite some time. He also reports that several years ago, he was told he had problem with the veins in his scrotum, but has not had any treatment for that. No back pain. No scrotal pain. No burning with urination. No other complaints. PHYSICAL EXAMINATION CARDIAC: Regular rate and rhythm. No murmur, gallop, or rub. RESPIRATORY: Clear to auscultation bilaterally. ABDOMEN: Bowel sounds positive in all quadrants. No abdominal tenderness to palpation. No CVA tenderness or flank pain. ASSESSMENT AND PLAN Urethral discharge with urinary difficulty. We will obtain UA and add urine gonorrhea and chlamydia. The patient was instructed to follow up with primary care provider. Dictated by... Arielle Hernandez A.P.R.N. for Louise Nuñez/kalyani TD: 09/02/2016 00:11 JOB #: [id number] CONSULTATION REPORT Page 1 of 1 X ARIELLE BARBA APRN X CONSULTATION REPORT
--- NOTE | ~2016-09-01 | PN ---
Unit #: [id number] #: [id number] Patient: RICARDO MAHONEY [id number] [facility] [address] [place] [address] [id number] MR#: [id number] NAME: RICARDO MAHONEY ROOM: [facility] Age: 55 Sex: M Admission Date: 09/01/2016 : 1960 Attending Physician: Romaine Bajwa M.D. Admitting Physician: Romaine Bajwa M.D. Primary Care Physician: Paul Doctor Not In System [facility] NOTES DATE OF SERVICE: 09/04/2016 SUBJECTIVE Mr. Mahoney is a 62-year-old male with mood disorder and substance abuse, who was seen today and chart was reviewed, and case was discussed with the staff. He was anxious withdrawn. The patient always had been complaining of pain in his right lower leg from some cold injury. also has been reporting some persistent depression, anxiety, feelings of hopelessness, has not shown any agitation or aggression. He has been compliant with the treatment recommendation and has been taking medications and tolerating them fairly well. MENTAL STATUS EXAMINATION Middle-aged male, who was casually dressed with fair personal hygiene, appears to be in no acute distress or discomfort. He was alert with impaired attention and concentration. His mood was anxious and depressed with a congruent affect. Denies any current suicidal or homicidal ideations and also denies any auditory hallucinations. His insight and judgment remain slightly impaired. TREATMENT PLAN 1. We are prescribing p.r.n. ibuprofen 800 mg for pain. 2. We will continue to follow up. Dictated by... Louise Gore/kalyani TD: 09/05/2016 04:44 JOB #: [id number] Unit #: [id number] #: [id number] Patient: RICARDO MAHONEY [facility] NOTES Page 1 of 1 X Romaine Bajwa MD PROGRESS NOTE
[2016-09-02 10:02] LABS: URINE APPEARANCE CLOUDY; URINE BLOOD NEG (NEG); URINE COLOR YELLOW; URINE GLUCOSE 1000 MG/DL (NORM); URINE KETONE NEG (NEG); URINE LEUKOCYTE ESTERASE NEG (NEG); URINE NITRATE NEG (NEG); URINE PROTEIN NEG (NEG); URINE SPECIFIC GRAVITY 1.025 (1.003-1.035); URINE UROBILINOGEN 4 MG/DL (NORM)
[2016-09-02 10:09] LABS: URINE BILIRUBIN NEG (NEG)
[2016-09-05 23:49] LABS: CHLAMYDIA TRACH Not Detected (Not Detected); N GONOR Not Detected (Not Detected)
== END 2016-09-05 16:15 | disposition home or self-care (01) | DRG 885 ==
LOC: P1E 09:38
PROVIDERS: Nurse Practitioner Family; Psychiatry & Neurology Psychiatry
PROC: HZ2ZZZZ Detoxification Services for Substance Abuse Treatment (ICD-10-PCS; principal; 2016-09-01)
DX: F33.1 Major depressive disorder, recurrent, moderate (principal); F14.20 Cocaine dependence, uncomplicated; R45.851 Suicidal ideations; E11.9 Type 2 diabetes mellitus without complications; I10 Essential (primary) hypertension; Z59.0 Homelessness; F15.90 Other stimulant use, unspecified, uncomplicated; Z72.89 Other problems related to lifestyle; R36.9 Urethral discharge, unspecified; R39.16 Straining to void
CPT/HCPCS: 81003; 82947; 87491; 87591